=== PATIENT | male | born 1985 | race Caucasian/White ===

== ENCOUNTER 2019-08-11 09:25 | Emergency (ER) | payer OTHER ==
[~2019-08-11] VITALS: Ht 180.3 cm; Wt 82.0 kg
[2019-08-11] MEDS ORDERED: ondansetron 4mg rapidly disintigrating tab PO ONE (09:55)
[2019-08-11] MEDS ORDERED: HYDROcodone/acetaminophen 5mg/325mg tablet PO ONE (09:55)
[2019-08-11 10:29] VITALS: BP 140/90
== END 2019-08-11 10:51 | disposition home or self-care (01) ==
LOC: ER 09:26
DX: S20.211A Contusion of right front wall of thorax, initial encounter (principal); F17.200 Nicotine dependence, unspecified, uncomplicated; W22.09XA Striking against other stationary object, initial encounter; Y93.89 Activity, other specified; Y92.89 Other specified places as the place of occurrence of the external cause; Y99.8 Other external cause status
CPT/HCPCS: 71045; 99283

== ENCOUNTER 2019-09-07 12:49 | Emergency (ER) | payer OTHER ==
[~2019-09-07] VITALS: Ht 180.3 cm; Wt 86.4 kg
[2019-09-07 12:50] VITALS: BP 139/94
== END 2019-09-07 13:36 | disposition home or self-care (01) ==
LOC: ER 12:49
DX: S93.401A Sprain of unspecified ligament of right ankle, initial encounter (principal); M25.571 Pain in right ankle and joints of right foot; X58.XXXA Exposure to other specified factors, initial encounter; Y93.39 Activity, other involving climbing, rappelling and jumping off; Y92.89 Other specified places as the place of occurrence of the external cause; Y99.8 Other external cause status
CPT/HCPCS: 29515; 73610; 99284

== ENCOUNTER → 2023-06-23 | Emergency (ER) | payer OTHER ==
[~2023-06-23] VITALS: Ht 177.8 cm; Wt 93.8 kg
[2023-06-23 18:42] VITALS: BP 177/114; PULSE 63; RESP 16; TEMP 98.2; O2SAT 97
[2023-06-23 19:31] LABS: ANION GAP 12 (8-16); BLOOD UREA NITROGEN 15 MG/DL (7-18); BUN/CREATININE RATIO 14.6 (10.0-20.0); CALCIUM 8.9 MG/DL (8.5-10.1); CHLORIDE 105 MMOL/L (99-107); CREATINE KINASE 96 U/L (39-308); CREATININE 1.03 MG/DL (0.60-1.10); GLUCOSE 97 MG/DL (70-104); LIPASE 37 U/L (16-77); POTASSIUM 3.6 MMOL/L (3.5-5.1); SODIUM 142 MMOL/L (135-145); TOTAL CARBON DIOXIDE 25.5 MMOL/L (24-32); eCRCL 102 ML/MIN; eGFR 82 ML/MIN
[2023-06-23 19:57] LABS: BASOPHILS # (AUTO) 0.1 X10'3 (0-0.2); EOSINOPHILS # (AUTO) 0.3 X10'3 (0-0.9); EOSINOPHILS % (AUTO) 2.7 % (0-6); LYMPHOCYTES # (AUTO) 2.5 X10'3 (1.1-4.8); MEAN CORPUSCULAR HGB CONC 35.8 g/dL (33.0-36.5); MEAN PLATELET VOLUME 8.7 FL (7.4-10.4); MONOCYTES % (AUTO) 9.2 % (2-12); NEUTROPHILS # (AUTO) 6.6 X10'3 (1.8-7.7); NEUTROPHILS % (AUTO) 63.1 % (42-75); PLATELET COUNT 324 X10'3 (140-440); WHITE BLOOD COUNT 10.5 X10'3 (4.5-11.0)
[2023-06-23 21:42] LABS: RED BLOOD COUNT 4.81 X10'6 (4.70-6.10)
[2023-06-23 21:43] LABS: HEMATOCRIT 41.3 % (42.0-52.0); HEMOGLOBIN 15.4 g/dl (14.0-17.9); MEAN CORPUSCULAR VOLUME 85.9 FL (78-98); RED CELL DISTRIBUTION WIDTH 12.7 % (11.5-14.5)
== END | disposition left against medical advice (07) ==
LOC: ER 18:24
DX: T65.891A Toxic effect of other specified substances, accidental (unintentional), initial encounter (principal); R42 Dizziness and giddiness; Y92.89 Other specified places as the place of occurrence of the external cause
CPT/HCPCS: 71045; 80048; 82550; 83690; 85025; 93005; 99281; 99285

== ENCOUNTER 2023-10-20 17:07 | Emergency (ER) | payer BC ==
[~2023-10-20] VITALS: Ht 180.3 cm; Wt 90.9 kg
[2023-10-20] MEDS ORDERED: HYDR-3965 PO (18:56)
[2023-10-20] MEDS: HYDROcodone/acetaminophen 10/325mg tab PO ONE (19:17)
[2023-10-20] MEDS: TETanus/Pertussis (Acell)/Diphther VAC/PF (Tdap-Adult) 0.5ml syringe IMVAC ONE (19:34)
[2023-10-20 19:57] VITALS: BP 147/94; PULSE 57; RESP 17; TEMP 98; O2SAT 98
== END 2023-10-20 19:59 | disposition home or self-care (01) ==
LOC: ER 17:08
DX: S70.02XA Contusion of left hip, initial encounter (principal); S70.01XA Contusion of right hip, initial encounter; X58.XXXA Exposure to other specified factors, initial encounter; Y93.89 Activity, other specified; Y92.89 Other specified places as the place of occurrence of the external cause; Y99.8 Other external cause status
CPT/HCPCS: 73521; 90471; 90715; 99283